=== PATIENT | male | born 1965 | race Caucasian/White ===

== ENCOUNTER 2017-06-24 16:02 | Emergency (ER) | payer BC ==
[~2017-06-24] VITALS: Ht 182.9 cm; Wt 138.8 kg
[~2017-06-24 16:02] MED LIST: ALEVE220 M2 PO; LORTAB 7.57.5 MG PO; LOSARTAN POTASS50 MG PO
[2017-06-24 16:08] VITALS: BP 145/76
== END 2017-06-24 17:20 | disposition left against medical advice (07) | DRG 951 ==
LOC: ED 16:02 → LWOBS 17:20
DX: Z91.19 Patient's noncompliance with other medical treatment and regimen (principal)

== ENCOUNTER 2017-07-25 11:12 | Emergency (ER) | payer BC ==
[~2017-07-25] VITALS: Ht 182.9 cm; Wt 136.0 kg
[2017-07-25] MEDS ORDERED: CEPHALEXIN500 M1 PO (13:19)
[2017-07-25] MEDS ORDERED: BACTRIM DS1 TAB PO (13:19)
[2017-07-25] MEDS ORDERED: MUPIROCIN21 TOP (13:25)
[2017-07-25 13:33] VITALS: BP 178/69
== END 2017-07-25 13:42 | disposition home or self-care (01) | DRG 603 ==
LOC: ED 11:12
DX: L03.116 Cellulitis of left lower limb (principal); I10 Essential (primary) hypertension

== ENCOUNTER 2018-06-17 10:33 | Day surgery (SDC) | payer OTHER ==
[~2018-06-17] VITALS: Ht 182.9 cm; Wt 132.9 kg
[~2018-06-17 10:33] MED LIST changes: +BACTRIM DS1 TAB PO; +CEPHALEXIN500 M1 PO; +HYDROCHLOROT12.5 MG PO; +MUPIROCIN21 TOP
[2018-06-17] MEDS ORDERED: KEFLEX500 MG PO (14:49)
[2018-06-17] MEDS ORDERED: OXYBUTYNIN5 M1 PO (14:49)
[2018-06-17] MEDS ORDERED: GABAPENTIN100 MG PO (14:49)
[2018-06-17 14:51] VITALS: BP 120/69
== END 2018-06-17 15:20 | disposition home or self-care (01) | DRG 726 ==
LOC: ENDO 10:33 → ORM 12:00 → ENDO 15:20
PROVIDERS: ATTEND Urology
PROC: 0T7D8DZ Dilation of Urethra with Intraluminal Device, Via Natural or Artificial Opening Endoscopic (ICD-10-PCS; principal; 2018-06-17)
DX: N40.1 Benign prostatic hyperplasia with lower urinary tract symptoms (principal); R35.0 Frequency of micturition; R39.12 Poor urinary stream; R35.1 Nocturia; I10 Essential (primary) hypertension
CPT/HCPCS: C1769; L8699

== ENCOUNTER 2019-10-23 | Emergency (ER) | payer BC ==
[~2019-10-23] MED LIST changes: +GABAPENTIN100 MG PO; +KEFLEX500 MG PO; +OXYBUTYNIN5 M1 PO
[2019-10-23 09:18] LABS: HEMATOCRIT 46.1 % (39.0-50.0); HEMOGLOBIN 15.1 g/dl (14.0-18.0); IMMATURE GRANULOCYTES 0.5 % (0.0-5.0); MEAN CELL VOLUME 88.1 fL CALC (80.0-100.0); MEAN CORPUSCULAR HGB 28.9 pG CALC (26.0-32.0); MEAN CORPUSCULAR HGB CONC 32.8 g/L CALC (32.0-36.0); NEUT# 5.3 thou/uL (1.82-7.42); RED BLOOD COUNT 5.23 mill/uL (4.70-6.10); RED CELL DISTRI WIDTH 14.2 % (11.5-15.5)
[2019-10-23 09:30] LABS: ANION GAP 13 (6-22 (CALC)); BUN 13 mg/dL (9-20); BUN/CREATININE RATIO 16 (12-20 (CALC)); CARBON DIOXIDE 25 mmol/l (22-30); CHLORIDE 102 mmol/l (95-108); CREATININE 0.8 mg/dL (0.7-1.3); GFR > 60 ML/MIN (>=60 (CALC)); GFR FOR AFR.AMER. > 60 ML/MIN (>=60 (CALC)); POTASSIUM 4.5 mmol/l (3.5-5.1); SODIUM 135 mmol/l (137-146)
[2019-10-23] MEDS ORDERED: AMOX/K CLAV875 M1 PO (09:51)
== END 2019-10-23 10:00 | disposition home or self-care (01) | DRG 153 ==
PROVIDERS: Family Medicine
DX: J32.9 Chronic sinusitis, unspecified (principal); R07.9 Chest pain, unspecified; I10 Essential (primary) hypertension; F17.210 Nicotine dependence, cigarettes, uncomplicated

== ENCOUNTER 2020-05-02 02:19 | Observation (INO) | payer BC ==
[~2020-05-02] VITALS: Ht 182.9 cm; Wt 136.6 kg
[~2020-05-02 02:19] MED LIST changes: +AMOX/K CLAV875 M1 PO
--- NOTE | 2020-05-02 02:27 | NUR ---
PT AMBULATORY TO ROOM WITH MASK ON. PLACED IN ROOM/ISOLATION FOR COVID PRECAUTIONS. GOWNED. TRIAGED AT BEDSIDE
[2020-05-02 03:26] LABS: HEMATOCRIT 42.7 % (39.0-50.0); HEMOGLOBIN 13.9 g/dl (14.0-18.0); IMMATURE GRANULOCYTES 0.6 % (0.0-5.0); MEAN CELL VOLUME 87.3 fL CALC (80.0-100.0); MEAN CORPUSCULAR HGB 28.4 pG CALC (26.0-32.0); MEAN CORPUSCULAR HGB CONC 32.6 g/dL CAL (32.0-36.0); NEUT# 9.31 thou/uL (1.82-7.42); RED BLOOD COUNT 4.89 mill/uL (4.70-6.10); RED CELL DISTRI WIDTH 14.7 % (11.5-15.5)
--- NOTE | 2020-05-02 03:26 | NUR ---
PT UP TO BR TO GET SAMPLES FOR STOOL AND URINE. INCONT OF SOME STOOL IN BED. SAMPLES OBTAINED AND SENT. IV STARTED/LABS DRAWN/CULTURES OBTAINED/BC CULT SENT. PT CONNECTED TO MONITORS. GIVEN BLANKET. HOB ELEVATED. LIGHTS DIMMED.
--- NOTE | 2020-05-02 03:38 | NUR ---
INCONT OF LIQUID STOOL. TO BR.
[2020-05-02 03:43] LABS: URINE BLOOD DIPSTICK MODERATE (NEGATIVE); URINE COLOR ORANGE; URINE GLUCOSE - DIPSTICK NEGATIVE (NEGATIVE); URINE KETONE >=80 mg/dL (NEGATIVE); URINE PH 5.5 (4.5-8.0); URINE PROTEIN - DIPSTICK 100 mg/dL (NEG-TRACE); URINE SPECIFIC GRAVITY >=1.030
[2020-05-02 03:48] LABS: ALBUMIN 4.3 g/dL (3.2-5.0); ALKALINE PHOSPHATASE 87 u/l (38-126); AMYLASE 49 u/l (30-110); ANION GAP 15 (6-22 (CALC)); BUN 17 mg/dL (9-20); BUN/CREATININE RATIO 16 (12-20 (CALC)); CARBON DIOXIDE 27 mmol/l (22-30); CHLORIDE 94 mmol/l (95-108); CREATININE 1.1 mg/dL (0.7-1.3); GFR > 60 ML/MIN (>=60 (CALC)); GFR FOR AFR.AMER. > 60 ML/MIN (>=60 (CALC)); LIPASE 48 u/l (23-300); POTASSIUM 4.1 mmol/l (3.5-5.1); SODIUM 132 mmol/l (137-146); TOTAL PROTEIN 7.2 g/dL (6.3-8.2)
[2020-05-02 03:58] LABS: URINE BILIRUBIN - DIPSTICK MODERATE (NEGATIVE); URINE NITRITE - DIPSTICK POSITIVE (Negative)
[2020-05-02 03:59] LABS: URINE LEUK ESTERASE NEGATIVE (NEGATIVE)
[2020-05-02 04:00] LABS: MYOGLOBIN 94 ng/mL (0 - 121)
[2020-05-02 04:00] LABS: URINE BACTERIA MANY hpf; URINE EPITHELIAL CELLS MODERATE EPI/hpf (0-FEW); URINE FINE GRAN CAST FEW lpf
[2020-05-02 04:01] LABS: URINE HYALINE CAST MANY lpf (NONE-RARE)
[2020-05-02 04:03] LABS: BILIRUBIN, TOTAL 1.9 mg/dL (0.0-1.4); SGOT/AST 75 u/l (17-59)
--- NOTE | 2020-05-02 05:28 | NUR ---
PT RETURNED FROM CT AND WAS INCONT OF LIQUID STOOL. TO BR. PT C/O EPIGASTRIC PAIN. 04/13. NOTIFIED.
--- NOTE | 2020-05-02 05:41 | NUR ---
SATS AT 89-91...PLACED ON NC AT 2 LPM. AFTER O2 95%
--- NOTE | 2020-05-02 07:12 | NUR ---
REPORT TO DIANA MACEDO
--- NOTE | 2020-05-02 07:18 | NUR ---
The patient soiled himself, he was instructed by the night nurse to clean himself and he has chosen to not do so.
--- NOTE | 2020-05-02 07:45 | NUR ---
PATIENT GIVEN A FOOD TRAY. LINENS GIVEN FOR HIM TO CLEAN HIMSELF UP.
--- NOTE | 2020-05-02 08:45 | NUR ---
tHE PATIENT WAS GIVEN MORNING MEDICATIONS,
--- NOTE | 2020-05-02 09:21 | NUR ---
PATIENT TRANSFERRED TO HOSPITAL BED.
--- NOTE | 2020-05-02 10:02 | NUR ---
THE PATIENT WANTS A PHONE TO CALL HER .
--- NOTE | 2020-05-02 10:03 | NUR ---
THE PATIENT IS WAITING FOR A ROOM.
--- NOTE | 2020-05-02 11:09 | NUR ---
THE PATIENT HAS CLEAN CLOTHES THAT WAS BROUGHT IN BY HIS MOTHER.
--- NOTE | 2020-05-02 11:56 | NUR ---
pER DOCTORS OFFICE, COVID NEGATIVE
--- NOTE | 2020-05-02 12:10 | NUR ---
SBAR PRINTED TO FLOOR
--- NOTE | 2020-05-02 12:59 | NUR ---
PATIENT ATE LUNCH.
--- NOTE | 2020-05-02 15:03 | NUR ---
REPORT GIVEN T Jimmie GARZA. PATIENT TRANSPORT TO ROOM 271
--- NOTE | 2020-05-02 15:30 | NUR ---
PT ARRIVED TO MS VIA WC. A&O X3. O2 VIA NC @ 2L IN PLACE. PT DENIES ANY CURRENT PAIN AT THIS TIME. TRACE EDEMA NOTED TO BILAT ANKLES. PT REFUSED [facility]. ORIENTED PT TO ROOM. ASSESSMENT COMPLETED. DISCUSSED POC. CALL LIGHT IN REACH. CONTINUE TO MONITOR.
[2020-05-02 17:56] VITALS: BP 140/75
[2020-05-02 19:27] VITALS: BP 135/69
--- NOTE | 2020-05-02 21:45 | NUR ---
PT MEDICATED W/TYLENOL FOR FEVER, O2 NC ON 2L/SAT 94% PT BREATHING IS SHALLOW AND LABORED. MILD WHEEZING AUDIBLE WHILE IN ROOM AND NEAR PT. LUNG SOUNDS UPON AUSCULTATION WHEEZING TO BLQ OF LUNGS. PT DENIES PAIN OR FEELING SOB. PT REPORTS HAVING DIARRHEA SEVERAL TIMES SINCE ARRIVING TO HOSPITAL. IVF RUNNING @100/SITE APPEARS HEALTHY. PT MEDICATED W/LOVONOX SHOT ORDERED. BLANKET REMOVED AND ROOM TURNED COOLER.
--- NOTE | 2020-05-03 01:07 | NUR ---
PT SLEEPING, NO S/O DISTRESS NOTED. CALL LIGHT AT SIDE W/IN REACH.
--- NOTE | 2020-05-03 02:30 | NUR ---
PT HEARD COUGHING, PT DENIED NEEDS. WILL CONTINUE TO MONITOR.
[2020-05-03 04:34] VITALS: BP 129/79
--- NOTE | 2020-05-03 04:40 | NUR ---
CHANNEL SUPERVISOR IN W/PT OBTAINING V/S. URINE FOUND ON THE FLOOR NEXT TO THE BED. PT REPORTED HAVING TO URINATE ON THE FLOOR "BECAUSE THE IV PUMP WAS ON ONE SIDE AND THE 02 WAS ON THE OTHER SIDE OF THE BED" PT INSTRUCTED THAT HE NEEDS TO CALL FOR ASSISTANCE WHEN NEEDED AND THAT HE HAS A URINAL AT BEDSIDE. PT VERBALIZED UNDERSTANDING. WILL CONTINUE TO MONITOR FOR NEEDS OF ASSISTANCE, CALL LIGHT IS AT SIDE.
--- NOTE | 2020-05-03 05:48 | NUR ---
PT SLEEPING, IVP CLEARED. NO S/O DISTRESS. O2NC ON
[2020-05-03 05:49] LABS: HEMATOCRIT 37.7 % (39.0-50.0); HEMOGLOBIN 12.2 g/dl (14.0-18.0); MEAN CELL VOLUME 88.7 fL CALC (80.0-100.0); MEAN CORPUSCULAR HGB 28.7 pG CALC (26.0-32.0); MEAN CORPUSCULAR HGB CONC 32.4 g/dL CAL (32.0-36.0); RED BLOOD COUNT 4.25 mill/uL (4.70-6.10); RED CELL DISTRI WIDTH 15.4 % (11.5-15.5)
[2020-05-03 06:01] LABS: ANION GAP 12 (6-22 (CALC)); BUN 19 mg/dL (9-20); BUN/CREATININE RATIO 21 (12-20 (CALC)); CARBON DIOXIDE 23 mmol/l (22-30); CHLORIDE 100 mmol/l (95-108); CREATININE 0.9 mg/dL (0.7-1.3); GFR > 60 ML/MIN (>=60 (CALC)); GFR FOR AFR.AMER. > 60 ML/MIN (>=60 (CALC)); MAGNESIUM 2.4 mg/dL (1.6-2.3); POTASSIUM 4.1 mmol/l (3.5-5.1); SODIUM 131 mmol/l (137-146)
[2020-05-03 08:00] VITALS: BP 117/72
--- NOTE | 2020-05-03 08:00 | NUR ---
PT IS ALERT AND ORIENTED X 3. LUNGS CLEAR, DIMINISHED PER BODY HABITUS, 2 LPM NC. PT STATES THAT HE DOES NOT FEEL WELL. PT FINDINGS REVIEWED WITH PT.
--- NOTE | 2020-05-03 13:00 | NUR ---
PT PROVIDED MILK OF MAGNESIA PER BLOATED SENSATION. PT CONTINUES AT REST IN THE BED, NO DISTRESS NOTED.
[2020-05-03 16:00] VITALS: BP 148/76
--- NOTE | 2020-05-03 16:22 | NUR ---
NO CHANGE IN STATUS PT SEEN RESTING IN THE BED, NO DISTRESS.
[2020-05-03 19:33] VITALS: BP 128/78
--- NOTE | 2020-05-03 21:56 | NUR ---
PT MEDICATED ORDERS PROVIDE. PT REPORTS FEELING "BLOATED" STATING HE "NEEDS TO HAVE BM" I DISCUSSED W/PT THAT HE HAD DIAHRREA DAY BEFORE LAST, BUT HE IS ASKING FOR MEDICATION FOR IT. PT PROVIDED PRUNE JUICE AT THIS TIME, AGREED TO TRY THIS.
--- NOTE | 2020-05-04 | NUR ---
PT HEARD COUGHING LOUDLY AND IN RESTROOM, UPON CHECKING ON PT HE REPORTED COUGHING A GOOD AMOUNT OF PHLEGM UP AND HAVING A MODERATE STOOL OUTPUT. PT IS FOUND BRUSHING HIS TEETH. ASSISTED PT FRESHENING BEDDING UP AND PROVIDED FRESH TOWELS. PT ASSISTED BACK TO BED AND WITH IV AND OXYGEN TUBING. PT DENIES ANY OTHER NEEDS.
[2020-05-04 04:00] VITALS: BP 130/84
[2020-05-04 06:05] LABS: BUN 15 mg/dL (9-20); BUN/CREATININE RATIO 20 (12-20 (CALC)); CHLORIDE 97 mmol/l (95-108); CREATININE 0.7 mg/dL (0.7-1.3); GFR > 60 ML/MIN (>=60 (CALC)); GFR FOR AFR.AMER. > 60 ML/MIN (>=60 (CALC)); POTASSIUM 3.9 mmol/l (3.5-5.1); SODIUM 131 mmol/l (137-146)
[2020-05-04 06:16] LABS: ANION GAP 10 (6-22 (CALC)); CARBON DIOXIDE 28 mmol/l (22-30)
[2020-05-04 06:23] LABS: HEMATOCRIT 34.3 % (39.0-50.0); HEMOGLOBIN 11.1 g/dl (14.0-18.0); MEAN CELL VOLUME 88.2 fL CALC (80.0-100.0); MEAN CORPUSCULAR HGB 28.5 pG CALC (26.0-32.0); MEAN CORPUSCULAR HGB CONC 32.4 g/dL CAL (32.0-36.0); RED BLOOD COUNT 3.89 mill/uL (4.70-6.10); RED CELL DISTRI WIDTH 15.2 % (11.5-15.5)
[2020-05-04 08:00] VITALS: BP 130/84
--- NOTE | 2020-05-04 09:30 | NUR ---
PT IS ALERT AND ORIENTED X 3. ASSESSMENT AND VITALS COMPLETE. AWAKENS TO STIMULI, DENIES PAIN FOR PRODUCTIVE COUGH. IV SITE APPEARS HEALTHY AND FLUSHES LUNGS CLEAR, DIMINISHED PER BODY HABITUS, 2 LT NC. PT ENCOURAGED TO VERBALIZE CONCERNS. STATES UNDERSTANDING. CALL LIGHT WITHIN REACH.
--- NOTE | 2020-05-04 12:01 | NUR ---
PT. RESTING IN BED. DENIES PAIN FOR PRODUCTIVE COUGH. DENIES NEEDS AND VOICES NO COMPLAINTS. SCHED MED GIVEN. UPDATED ON POC. IV SITE PATENT ENCOURAGED TO CALL FOR ANY NEEDS.
[2020-05-04 15:00] VITALS: BP 146/77
--- NOTE | 2020-05-04 16:00 | NUR ---
PT CONTINUES BEFORE IN BED RESTING IN NO ACUTE DISTRESS. PT IS ALERT AND ORIENTED X3. PT HAS COARSE BREATH SOUND AND HAS BEEN HEARD COUGHING. PT SAYS HE IS COUGHING UP SPUTUM. PT REQUESTED MILK OF MAGNESIUM TO HELP MOVE HIS BOWELS. WILL CONTINUE TO OBSERVE. CALL ENNIS WITHIN REACH.
[2020-05-04 18:18] VITALS: BP 162/87
[2020-05-04 19:40] VITALS: BP 158/84
[2020-05-04 19:45] VITALS: BP 161/91
--- NOTE | 2020-05-04 21:24 | NUR ---
PT MEDICATED ORDERS PROVIDE AND W/TYLENOL FOR HEADACHE R/T COUGHING. PT REPORTS PRODUCTIVE COUGH AT THIS TIME WITH WHITE/CLEAR SPUTUM. PT DENIES DIARRHEA/N/V. REPORTS TWO STOOL OUTPUT THIS DAY.
--- NOTE | 2020-05-05 01:20 | NUR ---
PT SLEEPING, NO S/O DISTRESS NOTED.
[2020-05-05 04:36] VITALS: BP 132/76
[2020-05-05 05:03] LABS: HEMATOCRIT 36.3 % (39.0-50.0); HEMOGLOBIN 11.5 g/dl (14.0-18.0); MEAN CELL VOLUME 88.8 fL CALC (80.0-100.0); MEAN CORPUSCULAR HGB 28.1 pG CALC (26.0-32.0); MEAN CORPUSCULAR HGB CONC 31.7 g/dL CAL (32.0-36.0); RED BLOOD COUNT 4.09 mill/uL (4.70-6.10); RED CELL DISTRI WIDTH 14.9 % (11.5-15.5)
[2020-05-05 05:25] LABS: ANION GAP 9 (6-22 (CALC)); BUN 12 mg/dL (9-20); BUN/CREATININE RATIO 17 (12-20 (CALC)); CARBON DIOXIDE 31 mmol/l (22-30); CHLORIDE 98 mmol/l (95-108); CREATININE 0.7 mg/dL (0.7-1.3); GFR > 60 ML/MIN (>=60 (CALC)); GFR FOR AFR.AMER. > 60 ML/MIN (>=60 (CALC)); MAGNESIUM 2.2 mg/dL (1.6-2.3); POTASSIUM 4.1 mmol/l (3.5-5.1); SODIUM 134 mmol/l (137-146)
--- NOTE | 2020-05-05 08:50 | NUR ---
PT IS SITTING IN THE CHAIR. PT IS A&O X3. O2 AT 2L VIA NC. PT STATED HE HAS A HEADACHE THAT COMES AND GOES. PT DENIES PAIN MEDICATION AT THIS TIME. CALL LIGHT IN REACH.
[2020-05-05 09:02] VITALS: BP 129/78
--- NOTE | 2020-05-05 12:38 | NUR ---
PT IS SITTING IN THE CHAIR. PT STATED HE HAS A HEADACE. MEDICATED PT WITH TYLENOL. PT DENIES ANY OTHER NEEDS AT THIS TIME. CALL LIGHT IN REACH.
[2020-05-05 15:00] VITALS: BP 142/85
--- NOTE | 2020-05-05 16:30 | NUR ---
PT IS RESTING IN BED. PT STATED PAIN MEDICATION HELPED FOR HIS HEADACHE. PT DENIES ANY NEEDS AT THIS TIME. CALL LIGHT IN REACH.
[2020-05-05 19:38] VITALS: BP 151/85
--- NOTE | 2020-05-05 21:31 | NUR ---
PT MEDICATED ORDERS PROVIDE AND FOR COUGH AND HEADACHE. SPUTUM SAMPLE SENT TO LAB. LUNG SOUNDS DIM/CLEAR, PT DENIES ANY OTHER NEEDS AT THIS TIME.
[2020-05-06 04:05] VITALS: BP 152/88
[2020-05-06 05:42] LABS: ALKALINE PHOSPHATASE 81 u/l (38-126); ANION GAP 10 (6-22 (CALC)); BUN 12 mg/dL (9-20); BUN/CREATININE RATIO 20 (12-20 (CALC)); CARBON DIOXIDE 29 mmol/l (22-30); CHLORIDE 98 mmol/l (95-108); CREATININE 0.6 mg/dL (0.7-1.3); GFR > 60 ML/MIN (>=60 (CALC)); GFR FOR AFR.AMER. > 60 ML/MIN (>=60 (CALC)); POTASSIUM 3.7 mmol/l (3.5-5.1); SGOT/AST 49 u/l (17-59); SODIUM 133 mmol/l (137-146)
[2020-05-06 05:51] LABS: BILIRUBIN, TOTAL 0.7 mg/dL (0.0-1.4); TOTAL PROTEIN 5.6 g/dL (6.3-8.2)
[2020-05-06 06:26] LABS: HEMATOCRIT 34.2 % (39.0-50.0); HEMOGLOBIN 10.9 g/dl (14.0-18.0); MEAN CELL VOLUME 87.2 fL CALC (80.0-100.0); MEAN CORPUSCULAR HGB 27.8 pG CALC (26.0-32.0); MEAN CORPUSCULAR HGB CONC 31.9 g/dL CAL (32.0-36.0); NEUT# 3.91 thou/uL (1.82-7.42); RED BLOOD COUNT 3.92 mill/uL (4.70-6.10); RED CELL DISTRI WIDTH 14.8 % (11.5-15.5)
--- NOTE | 2020-05-06 07:00 | NUR ---
SHIFT CHANGE REPORT, PT AWAKE ALERT AND ORIENTED, NO C/O DISCOMFORT AT THIS TIME, EXPRESS DESIRE OF WANTING TO GO HOME TODAY AND ADVISED MD WILL ADDRESS HIS CONCERN, WILL CONTINUE TO MONITOR, CALL ENNIS IN REACH.
[2020-05-06 09:05] VITALS: BP 138/83
[2020-05-06 09:11] VITALS: BP 138/83
[2020-05-06] MEDS ORDERED: LEVAQUIN750 MG PO (10:03)
[2020-05-06] MEDS ORDERED: ROBITUSSIN AC10 ML PO (10:04)
--- NOTE | 2020-05-06 12:33 | NUR ---
SITTING UP IN CHAIR, MEDICAL TEAM ROUNDED, DISCUSSED D/C PLAN AND WROTE ORDERS.
--- NOTE | 2020-05-06 13:10 | NUR ---
Discharge instructions given. Patient verbalizes understanding of same. Discharged in stable condition via Wheelchair to Home with family. All belongings sent with pt.
--- NOTE | 2020-05-21 13:52 | NUR ---
Pneumonia post discharge follow up call completed today. Pt. is doing well and has returned to work. No fever, SOB, or other symptoms. Pt. has not scheduled f/u appt. with his PCP. Pt. took the prescribed antibiotics without issue. No questions or needs at this time.
== END 2020-05-06 13:01 | disposition home or self-care (01) | DRG 194 ==
LOC: ED 02:19 → ED-I 05:50 → ED 06:27 → ED-I 06:28 → MS2 15:29
PROVIDERS: Emergency Medicine; Nurse Practitioner; Nurse Practitioner Family; ADMIT Internal Medicine; ATTEND Internal Medicine
DX: J18.9 Pneumonia, unspecified organism (principal); N39.0 Urinary tract infection, site not specified; K52.9 Noninfective gastroenteritis and colitis, unspecified; I10 Essential (primary) hypertension; F17.200 Nicotine dependence, unspecified, uncomplicated; Z20.828 Contact with and (suspected) exposure to other viral communicable diseases
CPT/HCPCS: G0378; J1650; Q9967; S0164

== ENCOUNTER 2021-05-14 21:41 | Observation (INO) | payer BC ==
[~2021-05-14] VITALS: Ht 182.9 cm; Wt 134.0 kg
[~2021-05-14 21:41] MED LIST changes: +LEVAQUIN750 MG PO; +ROBITUSSIN AC10 ML PO
--- NOTE | 2021-05-14 21:45 | NUR ---
PT DIAPHORETIC WITH FREQUENT COUGH. TAKEN DIRECTLY TO ROOM 16 VIA WHEELCHAIR
[2021-05-14 22:30] LABS: IMMATURE GRANULOCYTES 0.6 % (0.0-5.0); MEAN CELL VOLUME 87.1 fL CALC (80.0-100.0); MEAN CORPUSCULAR HGB 28.7 pG CALC (26.0-32.0); NEUT# 4.29 thou/uL (1.82-7.42); RED BLOOD COUNT 5.57 mill/uL (4.70-6.10); RED CELL DISTRI WIDTH 13.8 % (11.5-15.5)
[2021-05-14 22:33] LABS: HEMATOCRIT 48.5 % (39.0-50.0)
--- NOTE | 2021-05-14 22:45 | NUR ---
RESP RATE DECREASING. O2 SATS REMAIN GREATER THAN 90% ON ROOM AIR. PT CONTINUES WITH FREQUENT COUGH AND SWEATING. PHYSICIAN NOTIFIED OF LOW TEMP. WARM BLANKET PROVIDED. DECREASED WORK OF BREATHING NOTED
[2021-05-14 22:49] LABS: ALKALINE PHOSPHATASE 69 u/l (38-126); ANION GAP 12 (6-22 (CALC)); BILIRUBIN, TOTAL 0.8 mg/dL (0.0-1.4); BUN 15 mg/dL (9-20); BUN/CREATININE RATIO 16 (12-20 (CALC)); CARBON DIOXIDE 27 mmol/l (22-30); CHLORIDE 100 mmol/l (95-108); CREATININE 0.9 mg/dL (0.7-1.3); GFR > 60 ML/MIN (>=60 (CALC)); GFR FOR AFR.AMER. > 60 ML/MIN (>=60 (CALC)); POTASSIUM 4.3 mmol/l (3.5-5.1); SGOT/AST 31 u/l (17-59); SODIUM 135 mmol/l (137-146)
[2021-05-14 22:50] LABS: ALBUMIN 4.2 g/dL (3.2-5.0); TOTAL PROTEIN 7.3 g/dL (6.3-8.2)
[2021-05-14 23:01] LABS: MYOGLOBIN 62 ng/mL (0 - 121)
[2021-05-14] MEDS ORDERED: ZITHROMAX250 MG PO (23:28)
[2021-05-14] MEDS ORDERED: ROBITUSSIN AC10 ML PO (23:29)
[2021-05-15] MEDS ORDERED: LIPITOR10 M1 PO (00:29)
[2021-05-15] MEDS ORDERED: PHENTERMINE H37.5 M2 PO (00:30)
--- NOTE | 2021-05-15 00:38 | NUR ---
DECREASED WORK OF BREATHING. FREQUENT COUGH RESOLVED. VSS. PT REPORTS FEELING BETTER. REST ENCOURAGED
--- NOTE | 2021-05-15 00:42 | NUR ---
PT AGREES WITH PLAN FOR ADMISSION. UPDATED THAT HE WILL HE HOUSED IN ED FOR NOW.
--- NOTE | 2021-05-15 00:43 | NUR ---
URINE SAMPLE REQUESTED MULTIPLE TIMES. PT DENIES URGE TO VOID. WATER GIVEN
--- NOTE | 2021-05-15 02:40 | NUR ---
PT MOVED TO ROOM 13 TO HAVE HOSPITAL BED. URINE SAMPLE OBTAINED. PT VOIDED 300 ML MARIMAR COLORED URINE. VSS. NO DISTRESS. CONTINUES WITH OXYGEN AT 2L VIA NC.
[2021-05-15 03:21] LABS: URINE BILIRUBIN - DIPSTICK SMALL (NEGATIVE); URINE BLOOD DIPSTICK NEGATIVE (NEGATIVE); URINE COLOR YELLOW; URINE GLUCOSE - DIPSTICK NEGATIVE (NEGATIVE); URINE KETONE NEGATIVE (NEGATIVE); URINE LEUK ESTERASE NEGATIVE (NEGATIVE); URINE NITRITE - DIPSTICK NEGATIVE (Negative); URINE PROTEIN - DIPSTICK NEGATIVE (NEG-TRACE); URINE UROBILINOGEN - DIPSTICK 0.2 E.U./dL (0.2)
--- NOTE | 2021-05-15 06:02 | NUR ---
VOIDED 300ML CLEAR YELLOW URINE. RESTING COMFORTABLY. NO COMPLAINTS. VSS.
[2021-05-15 07:00] VITALS: BP 140/71
--- NOTE | 2021-05-15 07:00 | NUR ---
RECIEVED FOR CARE. STABLE. RESTING QUIETLY.
--- NOTE | 2021-05-15 07:00 | NUR ---
Recieved for care,resting quietly,stable.
[2021-05-15] MEDS ORDERED: BUPROPION150 M3 PO (07:17)
[2021-05-15] MEDS ORDERED: ZOLPIDEM5 M1 PO (07:17)
[2021-05-15] MEDS ORDERED: SILDENAFIL100 MG PO (07:17)
--- NOTE | 2021-05-15 09:00 | NUR ---
RESTING QUIETLY. CALL ENNIS AT BEDSIDE
--- NOTE | 2021-05-15 09:46 | NUR ---
REPORT TO FIDELINA ONCOMING RN
--- NOTE | 2021-05-15 12:10 | NUR ---
MACHINE TOOL DRESSER REMOVED O2
--- NOTE | 2021-05-15 12:20 | NUR ---
CAROLE AND MD AT BEDSIDE TO EVALUATE PATIENT. ORDER TO REMOVE O2, AMBULATE PATIENT AND SEE HOW THE PATIENT IS. IF OK, HE CAN BE DISCHARGED.
--- NOTE | 2021-05-15 12:59 | NUR ---
Patient walked in hallway with assistance. Tolerated well. Saturations 94-95%. Patient states he feels much better than when he came in to the ER.
[2021-05-15 13:00] VITALS: BP 144/77
--- NOTE | 2021-05-15 13:08 | NUR ---
AUBREY RAGSDALE NOTIFIED OF PTS AMBULATION TRIAL PULSE OX, ADVISED OF DISCHARGE.
[2021-05-15] MEDS ORDERED: PREDNISONE10 MG PO (13:27)
--- NOTE | 2021-05-15 14:05 | NUR ---
DISCHARGE INFORMATION PROVIDED TO PATIENT. PATIENT VERBALIZES UNDERSTANDING OF SUCH. AMBULATORY AND THANKFUL FOR CARE. NO DISTRESS.
== END 2021-05-15 14:03 | disposition home or self-care (01) | DRG 192 ==
LOC: ED 21:41 → ED-I 23:00 → ED 23:00 → ED-I 05-15 00:09 → ED 05-15 00:23 → ED-I 05-15 00:24
PROVIDERS: Emergency Medicine; ADMIT Internal Medicine; ATTEND Internal Medicine
DX: J44.1 Chronic obstructive pulmonary disease with (acute) exacerbation (principal); I10 Essential (primary) hypertension; R09.02 Hypoxemia; F32.9 Major depressive disorder, single episode, unspecified; E78.5 Hyperlipidemia, unspecified; N40.0 Benign prostatic hyperplasia without lower urinary tract symptoms; F17.200 Nicotine dependence, unspecified, uncomplicated

== ENCOUNTER 2022-05-20 21:05 | Observation (INO) | payer BC ==
[2022-05-20] VITALS (7 sets, daily range): BP systolic 114–198; BP diastolic 65–82
[~2022-05-20] VITALS: Ht 182.9 cm; Wt 136.0 kg
[~2022-05-20 21:05] MED LIST changes: +BUPROPION150 M3 PO; +LIPITOR10 M1 PO; +PHENTERMINE H37.5 M2 PO; +PREDNISONE10 MG PO; +SILDENAFIL100 MG PO; +ZITHROMAX250 MG PO; +ZOLPIDEM5 M1 PO
[2022-05-20 21:45] LABS: HEMATOCRIT 42.9 % (39.0-50.0); HEMOGLOBIN 14.1 g/dl (14.0-18.0); IMMATURE GRANULOCYTES 0.2 % (0.0-5.0); MEAN CELL VOLUME 89.9 fL CALC (80.0-100.0); MEAN CORPUSCULAR HGB 29.6 pG CALC (26.0-32.0); MEAN CORPUSCULAR HGB CONC 32.9 g/dL CAL (32.0-36.0); NEUT# 4.13 thou/uL (1.82-7.42); RED BLOOD COUNT 4.77 mill/uL (4.70-6.10); RED CELL DISTRI WIDTH 14.3 % (11.5-15.5)
[2022-05-20 22:05] LABS: ALBUMIN 4.3 g/dL (3.2-5.0); ALKALINE PHOSPHATASE 66 u/l (38-126); ANION GAP 14 (6-22 (CALC)); BILIRUBIN, TOTAL 0.6 mg/dL (0.0-1.4); BUN 22 mg/dL (9-20); BUN/CREATININE RATIO 15 (12-20 (CALC)); CARBON DIOXIDE 24 mmol/l (22-30); CHLORIDE 105 mmol/l (95-108); CREATININE 1.4 mg/dL (0.7-1.3); GFR FOR AFR.AMER. > 60 ML/MIN (>=60 (CALC)); GFR OTHER RACES 52 ML/MIN (>=60 (CALC)); POTASSIUM 4.4 mmol/l (3.5-5.1); SGOT/AST 27 u/l (17-59); SODIUM 139 mmol/l (137-146); TOTAL PROTEIN 7.3 g/dL (6.3-8.2)
[2022-05-20 22:16] LABS: MYOGLOBIN 49 ng/mL (0 - 121)
[2022-05-21] VITALS (10 sets, daily range): BP systolic 128–153; BP diastolic 62–83
[2022-05-21 11:23] LABS: URINE BILIRUBIN - DIPSTICK NEGATIVE (NEGATIVE); URINE BLOOD DIPSTICK NEGATIVE (NEGATIVE); URINE COLOR YELLOW; URINE GLUCOSE - DIPSTICK NEGATIVE (NEGATIVE); URINE KETONE NEGATIVE (NEGATIVE); URINE LEUK ESTERASE NEGATIVE (NEGATIVE); URINE PH 5.5 (4.5-8.0); URINE PROTEIN - DIPSTICK NEGATIVE (NEG-TRACE); URINE SPECIFIC GRAVITY >=1.030; URINE UROBILINOGEN - DIPSTICK 0.2 E.U./dL (0.2)
[2022-05-21 11:24] LABS: URINE NITRITE - DIPSTICK NEGATIVE (Negative)
[2022-05-21] MEDS ORDERED: VESICARE5 M1 PO (11:25)
[2022-05-21] MEDS ORDERED: VITAMIN C1000 MG PO (11:26)
[2022-05-22] VITALS (7 sets, daily range): BP systolic 129–141; BP diastolic 64–74
[2022-05-22 06:39] LABS: ANION GAP 14 (6-22 (CALC)); BUN 20 mg/dL (9-20); BUN/CREATININE RATIO 26 (12-20 (CALC)); CARBON DIOXIDE 23 mmol/l (22-30); CHLORIDE 105 mmol/l (95-108); CREATININE 0.8 mg/dL (0.7-1.3); GFR FOR AFR.AMER. > 60 ML/MIN (>=60 (CALC)); GFR OTHER RACES > 60 ML/MIN (>=60 (CALC)); MAGNESIUM 2.2 mg/dL (1.6-2.3); SODIUM 137 mmol/l (137-146)
[2022-05-22] MEDS ORDERED: ZPAK PO (13:45)
[2022-05-22] MEDS ORDERED: MEDDOSEPAK PO (13:45)
[2022-05-22] MEDS ORDERED: VENTOLIN HFA108 MCG IN (13:46)
== END 2022-05-22 15:07 | disposition home or self-care (01) | DRG 191 ==
LOC: ED 21:05 → ED-I 23:33 → ED 23:43 → MS2 23:44
PROVIDERS: Emergency Medicine; Nurse Practitioner; ADMIT Internal Medicine; ATTEND Internal Medicine
DX: J44.1 Chronic obstructive pulmonary disease with (acute) exacerbation (principal); Z68.41 Body mass index [BMI] 40.0-44.9, adult; R09.02 Hypoxemia; I10 Essential (primary) hypertension; E66.01 Morbid (severe) obesity due to excess calories; E78.5 Hyperlipidemia, unspecified; N52.9 Male erectile dysfunction, unspecified; F17.210 Nicotine dependence, cigarettes, uncomplicated; F32.A Depression, unspecified; G47.33 Obstructive sleep apnea (adult) (pediatric); Z20.822 Contact with and (suspected) exposure to COVID-19
CPT/HCPCS: G0378; J1650

== ENCOUNTER 2022-09-30 11:24 | Emergency (ER) | payer BC ==
[~2022-09-30] VITALS: Ht 182.9 cm; Wt 140.9 kg
[~2022-09-30 11:24] MED LIST changes: +MEDDOSEPAK PO; +VENTOLIN HFA108 MCG IN; +VESICARE5 M1 PO; +VITAMIN C1000 MG PO; +ZPAK PO
[2022-09-30] MEDS ORDERED: VIBRAMYCIN100 M2 PO (14:43)
[2022-09-30] MEDS ORDERED: TRAMADOL HYDROC50 M1 PO (14:43)
[2022-09-30 15:03] VITALS: BP 175/60
== END 2022-09-30 15:09 | disposition home or self-care (01) | DRG 603 ==
LOC: ED 11:24
DX: L03.116 Cellulitis of left lower limb (principal)